=== PATIENT | male | born 1965 | race Caucasian/White ===

== ENCOUNTER 2020-10-06 06:04 | Outpatient (REF) | payer OTHER, SELFPAY ==
[2020-10-06 11:24] LABS: MANUAL DIFF FLAG NO
[2020-10-06 11:44] LABS: Basophils Absolute Auto 0.1 X10*3/uL (0.0-0.2); Basophils Percent Auto 1.1 % (0-2); Eosinophils Absolute Auto 0.3 X10*3/uL (0.0-0.4); Eosinophils Percent Auto 4.1 % (0-4); Hematocrit 46.3 % (42-52); Hemoglobin 15.4 g/dl (14.0-18.0); Imm Gran Abs Auto 0.05 X10*3/uL (0.00-0.03); Imm Gran Pct Auto 0.8 % (0.0-0.4); Lymphocytes Absolute Auto 1.9 X10*3/uL (1.2-4.9); Mean Corpuscular HGB Conc 33.3 g/dl (31.0-36.0); Mean Corpuscular Hemoglobin 28.6 pg (27.0-33.0); Mean Corpuscular Volume 85.9 fL (80-98); Mean Platelet Volume 11.5 fL (9.4-12.4); Monocytes Absolute Auto 0.7 X10*3/uL (0.1-1.2); Monocytes Percent Auto 10.2 % (2-11); Neutrophils Absolute Auto 3.7 X10*3/uL (2.0-8.3); Neutrophils Percent Auto 55.8 % (45-73); Platelet Count 206 X10*3/uL (160-400); Red Blood Count 5.39 X10*6/uL (4.60-5.80); Red Cell Distribution Width 13.1 % (11.0-16.0); White Blood Count 6.6 X10*3/uL (4.8-10.8)
[2020-10-06 12:15] LABS: Alanine Aminotransferase 62 U/L (0-40); Albumin Level 4.4 g/dL (3.5-5.0); Alkaline Phosphatase 72 U/L (39-117); Anion Gap 16 (12-20); Aspartate Amino Transferase 33 U/L (5-37); Bilirubin Total 0.4 mg/dL (0.0-1.0); Blood Urea Nitrogen 19 mg/dL (9-16); Calcium 9.4 mg/dL (8.4-10.2); Carbon Dioxide 28 mmol/L (22-29); Chloride 97 mmol/L (96-108); Cholesterol 150 mg/dL; Estimated Glomerular Filt Rate > 60; Glucose Fasting 261 mg/dL (60-99); HDL Cholesterol 29 mg/dL; Potassium 4.4 mmol/l (3.3-5.1); Sodium 137 mmol/L (135-145); Total Protein 6.9 g/dL (6.5-8.0); Triglycerides 433 mg/dL
[2020-10-06 12:18] LABS: Estimated Average Glucose 240 mg/dL
[2020-10-06 12:21] LABS: Reflex LDLD? No
[2020-10-06 12:41] LABS: Creatinine Urine 101.64 mg/dL; Microalbum/Creatinine Ratio Ur 10.8 ug/mg cr
[2020-10-06 12:44] LABS: Glucose Urine UA >=1000 MG/DL (NEG); Leukocyte Esterase Urine NEG (NEG); Nitrite Urine NEG (NEG); PH 5.5 (5.0-8.0); Specific Gravity - Urine 1.025 (1.005-1.025); Urine Blood NEG (NEG); Urine Ketones NEG (NEG); Urine Protein NEG (NEG-TRACE)
[2020-10-06 12:45] LABS: Appearance Urine CLEAR; Color Urine YELLOW
[2020-10-06 13:14] LABS: RBC Urine 0-2 /HPF (0); Squamous Epithelial Cell Urine TRACE /LPF; WBC Urine 0-2 /HPF (0-4)
== END 2020-10-06 06:05 | disposition home or self-care (01) ==
LOC: HO.HMGCLDS 06:04
PROVIDERS: PCP Internal Medicine; Visit Provider Internal Medicine
DX: E11.40 Type 2 diabetes mellitus with diabetic neuropathy, unspecified (principal); E78.6 Lipoprotein deficiency; E78.2 Mixed hyperlipidemia; Z12.5 Encounter for screening for malignant neoplasm of prostate
CPT/HCPCS: 36415; 80053; 80061; 81001; 81003; 82043; 83036; 84153; 85025

== ENCOUNTER → 2021-01-21 08:57 | Outpatient (BNVA) | payer OTHER, SELFPAY | PROVIDERS: PCP Internal Medicine; Visit Provider Nurse Practitioner Gerontology | DX: E11.65 Type 2 diabetes mellitus with hyperglycemia (principal); E78.2 Mixed hyperlipidemia; E78.1 Pure hyperglyceridemia; I10 Essential (primary) hypertension | CPT/HCPCS: 82947 ==

== ENCOUNTER 2021-04-06 10:21 | Outpatient (REF) | payer OTHER, SELFPAY ==
[2021-04-06 11:21] LABS: Estimated Average Glucose 223 mg/dL; Hemoglobin A1c % 9.4 %
[2021-04-06 11:34] LABS: Alanine Aminotransferase 61 U/L (0-40); Albumin Level 4.6 g/dL (3.5-5.0); Alkaline Phosphatase 66 U/L (39-117); Aspartate Amino Transferase 36 U/L (5-37); Bilirubin Direct 0.2 mg/dL (0.0-0.5); Bilirubin Total 0.6 mg/dL (0.0-1.0); Cholesterol 148 mg/dL; Glucose Fasting 176 mg/dL (60-99); HDL Cholesterol 35 mg/dL; LDL Cholesterol Calculated 34 mg/dl; Total Protein 7.3 g/dL (6.5-8.0); Triglycerides 398 mg/dL
[2021-04-06 11:55] LABS: Reflex LDLD? No
== END 2021-04-06 10:22 | disposition home or self-care (01) ==
LOC: HO.LNP 10:21
PROVIDERS: Visit Provider Internal Medicine
DX: E11.9 Type 2 diabetes mellitus without complications (principal); E78.00 Pure hypercholesterolemia, unspecified
CPT/HCPCS: 80061; 80076; 82947; 83036

== ENCOUNTER → 2021-06-29 08:24 | Outpatient (BNVA) | payer OTHER, SELFPAY | PROVIDERS: PCP Internal Medicine; Visit Provider Nurse Practitioner Gerontology | DX: E11.65 Type 2 diabetes mellitus with hyperglycemia (principal); E11.42 Type 2 diabetes mellitus with diabetic polyneuropathy; E78.2 Mixed hyperlipidemia; E78.1 Pure hyperglyceridemia; I10 Essential (primary) hypertension; Z79.84 Long term (current) use of oral hypoglycemic drugs | CPT/HCPCS: 82947; 83036 ==

== ENCOUNTER → 2021-10-19 07:24 | Outpatient (BNVA) | payer OTHER, SELFPAY | PROVIDERS: PCP Internal Medicine; Visit Provider Nurse Practitioner Gerontology ==

== ENCOUNTER 2021-11-18 10:06 | Outpatient (REF) | payer OTHER, SELFPAY ==
[2021-11-18 10:09] LABS: MANUAL DIFF FLAG NO
[2021-11-18 10:26] LABS: Basophils Absolute Auto 0.1 X10*3/uL (0.0-0.2); Basophils Percent Auto 0.8 % (0-2); Eosinophils Absolute Auto 0.3 X10*3/uL (0.0-0.4); Eosinophils Percent Auto 3.6 % (0-4); Hemoglobin 16.5 g/dl (14.0-18.0); Imm Gran Abs Auto 0.03 X10*3/uL (0.00-0.03); Imm Gran Pct Auto 0.4 % (0.0-0.4); Lymphocytes Absolute Auto 2.1 X10*3/uL (1.2-4.9); Lymphocytes Percent Auto 25.2 % (20-40); Mean Corpuscular Hemoglobin 28.4 pg (27.0-33.0); Mean Corpuscular Volume 86.1 fL (80.0-98.0); Mean Platelet Volume 11.2 fL (9.4-12.4); Monocytes Absolute Auto 0.7 X10*3/uL (0.1-1.2); Monocytes Percent Auto 8.6 % (2-11); Neutrophils Absolute Auto 5.2 x10*3/uL (2.0-8.3); Neutrophils Percent Auto 61.4 % (45-73); Platelet Count 234 X10*3/uL (160-400); Red Blood Count 5.81 X10*6/uL (4.60-5.80); Red Cell Distribution Width 13.2 % (11.0-16.0); White Blood Count 8.4 X10*3/uL (4.8-10.8)
[2021-11-18 10:27] LABS: Appearance Urine CLEAR; Color Urine STRAW; Glucose Urine UA 500 MG/DL (NEG); Leukocyte Esterase Urine NEG (NEG); Nitrite Urine NEG (NEG); PH 5.5 (5.0-8.0); Urine Blood NEG (NEG); Urine Ketones NEG (NEG); Urine Protein NEG (NEG-TRACE)
[2021-11-18 10:38] LABS: Estimated Average Glucose 203 mg/dL; Hemoglobin A1c % 8.7 %
[2021-11-18 10:40] LABS: Alanine Aminotransferase 27 U/L (0-40); Albumin Level 4.7 g/dL (3.5-5.0); Alkaline Phosphatase 73 U/L (39-117); Anion Gap 14 (12-20); Aspartate Amino Transferase 22 U/L (5-37); Bilirubin Total 0.5 mg/dL (0.0-1.0); Blood Urea Nitrogen 17 mg/dL (9-16); Calcium 9.8 mg/dL (8.4-10.2); Carbon Dioxide 27 mmol/L (22-29); Chloride 101 mmol/L (96-108); Cholesterol 138 mg/dL; Estimated Glomerular Filt Rate > 60; Glucose Fasting 146 mg/dL (60-99); HDL Cholesterol 35 mg/dL; LDL Cholesterol Calculated 61 mg/dl; Potassium 4.4 mmol/L (3.3-5.1); Sodium 138 mmol/L (135-145); Total Protein 7.3 g/dL (6.5-8.0); Triglycerides 211 mg/dL
[2021-11-18 11:00] LABS: Creatinine Urine 44.54 mg/dL; Microalbum/Creatinine Ratio Ur 22.4 ug/mg cr
[2021-11-18 11:30] LABS: PSA,Total (Free>4and<10) 2.48 ng/mL (0.00-4.00)
== END 2021-11-18 10:07 | disposition home or self-care (01) ==
LOC: HO.LNP 10:06
PROVIDERS: Visit Provider Internal Medicine
DX: Z00.00 Encounter for general adult medical examination without abnormal findings (principal); Z12.5 Encounter for screening for malignant neoplasm of prostate; I10 Essential (primary) hypertension; E78.6 Lipoprotein deficiency; E78.00 Pure hypercholesterolemia, unspecified; E11.40 Type 2 diabetes mellitus with diabetic neuropathy, unspecified
CPT/HCPCS: 80053; 80061; 81003; 82043; 83036; 84153; 85025

== ENCOUNTER → 2022-01-17 07:52 | Outpatient (BNVA) | payer OTHER, SELFPAY | PROVIDERS: PCP Internal Medicine; Visit Provider Nurse Practitioner Gerontology | DX: E11.65 Type 2 diabetes mellitus with hyperglycemia (principal); E11.42 Type 2 diabetes mellitus with diabetic polyneuropathy; E78.2 Mixed hyperlipidemia; E78.1 Pure hyperglyceridemia; I10 Essential (primary) hypertension; Z79.84 Long term (current) use of oral hypoglycemic drugs; Z79.82 Long term (current) use of aspirin; Z79.899 Other long term (current) drug therapy | CPT/HCPCS: 82947 ==

== ENCOUNTER 2022-06-07 06:21 | Outpatient (REF) | payer OTHER, SELFPAY ==
[2022-06-07 12:14] LABS: Estimated Average Glucose 174 mg/dL; Hemoglobin A1c % 7.7 %
[2022-06-07 12:19] LABS: Alanine Aminotransferase 24 U/L (0-40); Albumin Level 4.5 g/dL (3.5-5.0); Alkaline Phosphatase 62 U/L (39-117); Aspartate Amino Transferase 19 U/L (5-37); Bilirubin Direct < 0.2 mg/dL (0.0-0.5); Bilirubin Total 0.4 mg/dL (0.0-1.0); Cholesterol 132 mg/dL; Glucose Fasting 147 mg/dL (60-99); HDL Cholesterol 30 mg/dL; LDL Cholesterol Calculated 41 mg/dl; Total Protein 6.9 g/dL (6.5-8.0); Triglycerides 306 mg/dL
== END 2022-06-07 06:22 | disposition home or self-care (01) ==
LOC: HO.HMGCLDS 06:21
PROVIDERS: PCP Internal Medicine; Visit Provider Internal Medicine
DX: E78.00 Pure hypercholesterolemia, unspecified (principal); E11.40 Type 2 diabetes mellitus with diabetic neuropathy, unspecified
CPT/HCPCS: 36415; 80061; 80076; 82947; 83036

== ENCOUNTER 2022-08-09 16:07 | Outpatient (REF) | payer OTHER, SELFPAY ==
[2022-08-09 16:24] LABS: Appearance Urine Clear; Color Urine Yellow; Glucose Urine UA 250 mg/dL (Negative); Leukocyte Esterase Urine Moderate (2+) (Negative); Nitrite Urine Negative (Negative); Specific Gravity - Urine 1.015 (1.005-1.025); UMIC TRIGGER UA YES; Urine Blood Moderate (2+) (Negative); Urine Ketones Negative (Negative); Urine Protein 30 (1+) mg/dL (Neg-Trace)
[2022-08-09 16:29] LABS: Bacteria Urine None Seen (None Seen); WBC Urine 21-50 /HPF (0-5)
== END 2022-08-09 16:08 | disposition home or self-care (01) ==
LOC: HO.LNP 16:07
PROVIDERS: Visit Provider Internal Medicine
DX: N30.90 Cystitis, unspecified without hematuria (principal)
CPT/HCPCS: 81001; 87086

== ENCOUNTER 2022-08-19 11:45 | Outpatient (REF) | payer OTHER, SELFPAY ==
[2022-08-19 12:34] LABS: Appearance Urine Clear; Color Urine Dark Yellow; Glucose Urine UA >=1000 mg/dL (Negative); Leukocyte Esterase Urine Small (1+) (Negative); Nitrite Urine Positive (Negative); PH 5.5 (5.0-9.0); UMIC TRIGGER UA YES; Urine Blood Trace (Negative); Urine Ketones Negative (Negative); Urine Protein Trace mg/dL (Neg-Trace)
[2022-08-19 12:53] LABS: Bacteria Urine None Seen (None Seen); Hyaline Casts Urine 0-2 /LPF (0-2)
== END 2022-08-19 11:46 | disposition home or self-care (01) ==
LOC: HO.LNP 11:45
PROVIDERS: Visit Provider Internal Medicine
DX: R82.90 Unspecified abnormal findings in urine (principal)
CPT/HCPCS: 81001; 87086

== ENCOUNTER 2022-08-23 11:36 | Outpatient (REF) | payer OTHER, SELFPAY ==
[2022-08-23 12:38] LABS: Blood Urea Nitrogen 19 mg/dL (9-16); Estimated Glomerular Filt Rate 57
== END 2022-08-23 11:37 | disposition home or self-care (01) ==
LOC: HO.LNP 11:36
PROVIDERS: Visit Provider Internal Medicine
DX: Z01.812 Encounter for preprocedural laboratory examination (principal)
CPT/HCPCS: 82565; 84520

== ENCOUNTER 2022-08-24 12:20 | Outpatient (REF) | payer OTHER, SELFPAY ==
--- NOTE | ~2022-08-24 | CT_ITS ---
EXAMINATION: CT ABDOMEN AND PELVIS WITH CONTRAST CLINICAL INFORMATION: Dysuria COMPARISON: None TECHNIQUE: Multidetector volumetric images were obtained from the superior aspect of the liver through the pubic symphysis following administration 85 mL of Omnipaque 350 intravenous contrast. Sagittal and coronal reformatted images were obtained on the technologist's workstation. Oral contrast: No This CT examination was performed using dose optimization techniques as appropriate, variously including the following: *Automated exposure control *Adjustment of mA and/or kV according to patient size (this includes techniques or standardized protocols for targeted exams where dose is matched to indication/reason for exam; i.e. extremities or head) *Use of iterative reconstruction technique DLP: 414 mGy-cm FINDINGS: LUNG BASES: There are peripheral subpleural punctate hypodensities likely micronodules. For example a 2 mm nodule right lower lobe axial image 48/6, 3 mm nodule right middle lobe axial image 40/6 and 2 mm nodule subpleural based left lower lobe axial image 9/6. There is mild bronchial wall thickening but no bronchiectasis. LIVER, GALLBLADDER, AND BILIARY TREE: The liver is normal in size, shape, and attenuation. No focal hepatic lesion or biliary ductal dilatation is present. The gallbladder is unremarkable with no evidence of radiopaque gallstones, gallbladder wall thickening, or obvious pericholecystic inflammatory changes. PANCREAS: Unremarkable. SPLEEN: Unremarkable. ADRENAL GLANDS: Unremarkable. KIDNEYS AND URETERS: The kidneys are normal in size, shape, and attenuation. No hydronephrosis, hydroureter, or calculi seen. No perinephric stranding. There is no enhancing lesion or cyst. The ureters are of normal caliber. BLADDER: The bladder is nondistended. There is mild bladder wall thickening especially the posterior and superior velázquez. GASTROINTESTINAL TRACT: There is scattered moderate stool, diverticuli and gas seen throughout the colon without distention without diverticulitis. The small bowel loops are normal caliber. Appendix is normal caliber. ABDOMINAL WALL: No significant hernia is appreciated. LYMPH NODES: Normal. VASCULAR: There is atherosclerotic calcification of abdominal aorta without aneurysmal dilatation. PELVIC VISCERA: There is mild prostate enlargement with heterogeneous appearing central gland. No free fluid. No abnormal pelvic or inguinal lymph nodes. OSSEOUS STRUCTURES: There are degenerative disc changes with vacuum disc phenomena L5-S1 disc level. Mild ventral spondylosis throughout lumbar spine. CT/CT abdomen pelvis w IV con IMPRESSION: 1. No radiopaque urolith or hydroureteronephrosis. 2. Undistended bladder with mild bladder wall thickening. Mild prostate enlargement. 3. Colonic diverticulosis without diverticulitis. Fleischner guidelines were followed.
[2022-08-24] MEDS: iohexoL 350 MG/ML 100 ML INFUS..BTL IV (14:03)
== END 2022-08-24 12:21 | disposition home or self-care (01) ==
LOC: HO.CT 12:20
PROVIDERS: PCP Internal Medicine; Visit Provider Internal Medicine
DX: R30.0 Dysuria (principal)
CPT/HCPCS: 74177; Q9967

== ENCOUNTER 2022-09-06 10:44 | Outpatient (REF) | payer OTHER, SELFPAY ==
[2022-09-06 10:54] LABS: Appearance Urine Clear; Color Urine Dark Yellow; Glucose Urine UA >=1000 mg/dL (Negative); Leukocyte Esterase Urine Negative (Negative); Nitrite Urine Positive (Negative); UMIC TRIGGER UA YES; Urine Blood Negative (Negative); Urine Ketones Trace mg/dL (Negative); Urine Protein Negative (Neg-Trace)
[2022-09-06 11:06] LABS: Bacteria Urine Trace (None Seen); Hyaline Casts Urine 0-2 /LPF (0-2); RBC Urine 0-2 /HPF (0-2); Squamous Epithelial Cell Urine 0-2 /HPF (0-2)
== END 2022-09-06 10:45 | disposition home or self-care (01) ==
LOC: HO.LNP 10:44
PROVIDERS: Visit Provider Internal Medicine
DX: N40.0 Benign prostatic hyperplasia without lower urinary tract symptoms (principal); R30.0 Dysuria
CPT/HCPCS: 81001; 87086

== ENCOUNTER 2022-09-30 10:56 | Outpatient (REF) | payer OTHER, SELFPAY ==
[2022-09-30 11:36] LABS: Blood Urea Nitrogen 15 mg/dL (9-16); Estimated Glomerular Filt Rate > 60
== END 2022-09-30 10:57 | disposition home or self-care (01) ==
LOC: HO.LNP 10:56
PROVIDERS: Visit Provider Internal Medicine
DX: Z01.812 Encounter for preprocedural laboratory examination (principal)
CPT/HCPCS: 82565; 84520

== ENCOUNTER 2022-10-12 10:17 | Outpatient (REF) | payer OTHER, SELFPAY ==
--- NOTE | ~2022-10-12 | CT_ITS ---
EXAMINATION: CT CHEST WITH CONTRAST CLINICAL INFORMATION: Solitary pulmonary nodule COMPARISON: Chest CT from 07/17/2008. Abdominal CT 08/24/2022. TECHNIQUE: Multidetector volumetric CT imaging of the chest was obtained after the administration of 65 mL of Omnipaque 350 intravenous contrast without immediate adverse reactions. Axial MIP volume rendering provided. Sagittal and coronal reformatted images were obtained. This CT examination was performed using dose optimization techniques as appropriate, variously including the following: *Automated exposure control *Adjustment of mA and/or kV according to patient size (this includes techniques or standardized protocols for targeted exams where dose is matched to indication/reason for exam; i.e. extremities or head) *Use of iterative reconstruction technique DLP: 162 mGy-cm FINDINGS: APPAREL RENTAL CLERK: Unremarkable. LUNGS: The central airways are patent. No consolidation. No pneumothorax. Pulmonary nodules are again noted. 1. 0.2 cm right lower lobe nodule on series 7 image 108. This is unchanged from the prior abdominal CT, and unchanged compared to the study from 2007. 2. 0.3 cm right middle lobe nodule on series 7 image 109. This is unchanged from 2008. 3. 0.3 cm subpleural left lower lobe nodule on series 7 image 96. This is unchanged from 2008. 4. Left upper lobe 0.3 cm nodule on series 7 image 82 is unchanged from 2008. There are no new pulmonary nodules. MEDIASTINUM: Normal heart size. No pericardial effusion. No mediastinal lymphadenopathy. Moderate coronary artery calcifications. PLEURA: There is no pleural effusion. No pleural mass or thickening. AXILLA: No lymphadenopathy. UPPER ABDOMEN: No acute abnormality. Low-attenuation diffusely of the liver consistent with hepatic steatosis. OSSEOUS STRUCTURES: No acute or suspicious osseous abnormality. CT/CT chest w IV con IMPRESSION: 1. Multiple small pulmonary nodules are seen throughout both lungs, all of which are unchanged from 2008 and are therefore benign. No new pulmonary nodules are seen. 2. Hepatic steatosis. Fleischner guidelines were followed.
[2022-10-12] MEDS: iohexoL 350 MG/ML 100 ML INFUS..BTL IV (10:57)
== END 2022-10-12 10:18 | disposition home or self-care (01) ==
LOC: HO.CT 10:17
PROVIDERS: PCP Internal Medicine; Visit Provider Internal Medicine
DX: R91.1 Solitary pulmonary nodule (principal)
CPT/HCPCS: 71260; Q9967

== ENCOUNTER 2022-11-25 11:03 | Outpatient (REF) | payer OTHER, SELFPAY ==
[2022-11-25 11:09] LABS: MANUAL DIFF FLAG NO
[2022-11-25 11:50] LABS: Basophils Absolute Auto 0.1 X10*3/uL (0.0-0.2); Basophils Percent Auto 0.9 % (0-2); Eosinophils Absolute Auto 0.2 X10*3/uL (0.0-0.4); Eosinophils Percent Auto 2.6 % (0-4); Hematocrit 46.3 % (42.0-52.0); Imm Gran Abs Auto 0.07 X10*3/uL (0.00-0.03); Imm Gran Pct Auto 0.9 % (0.0-0.4); Lymphocytes Absolute Auto 2.4 X10*3/uL (1.2-4.9); Lymphocytes Percent Auto 31.1 % (20-40); Mean Corpuscular HGB Conc 32.4 g/dl (31.0-36.0); Mean Corpuscular Volume 86.4 fL (80.0-98.0); Mean Platelet Volume 11.3 fL (9.4-12.4); Monocytes Absolute Auto 0.7 X10*3/uL (0.1-1.2); Monocytes Percent Auto 9.7 % (2-11); Neutrophils Absolute Auto 4.2 x10*3/uL (2.0-8.3); Neutrophils Percent Auto 54.8 % (45-73); Platelet Count 254 X10*3/uL (160-400); Red Blood Count 5.36 X10*6/uL (4.60-5.80); White Blood Count 7.6 X10*3/uL (4.8-10.8)
[2022-11-25 11:52] LABS: Appearance Urine Cloudy; Color Urine Dark Yellow; Glucose Urine UA 500 mg/dL (Negative); Leukocyte Esterase Urine Trace (Negative); Nitrite Urine Positive (Negative); PH 5.5 (5.0-9.0); UMIC TRIGGER UACC YES; Urine Blood Trace (Negative); Urine Ketones Negative (Negative); Urine Protein Negative (Neg-Trace)
[2022-11-25 12:07] LABS: Bacteria Urine None Seen (None Seen); Hyaline Casts Urine 0-2 /LPF (0-2); RBC Urine 0-2 /HPF (0-2); Squamous Epithelial Cell Urine 0-2 /HPF (0-2); UACC Culture Trigger YES
[2022-11-25 12:46] LABS: Estimated Average Glucose 235 mg/dL; Hemoglobin A1c % 9.8 %
[2022-11-25 12:50] LABS: Creatinine Urine 24.28 mg/dL; Microalbum/Creatinine Ratio Ur 65.8 ug/mg cr
[2022-11-25 13:01] LABS: Alanine Aminotransferase 48 U/L (0-40); Albumin Level 4.5 g/dL (3.5-5.0); Alkaline Phosphatase 76 U/L (39-117); Anion Gap 15 (12-20); Aspartate Amino Transferase 31 U/L (5-37); Bilirubin Total 0.5 mg/dL (0.0-1.0); Blood Urea Nitrogen 19 mg/dL (9-16); Calcium 9.4 mg/dL (8.4-10.2); Carbon Dioxide 28 mmol/L (22-29); Chloride 100 mmol/L (96-108); Cholesterol 127 mg/dL; Estimated Glomerular Filt Rate 59; Glucose Fasting 210 mg/dL (60-99); HDL Cholesterol 33 mg/dL; LDL Cholesterol Calculated 50 mg/dl; PSA,Total (Free>4and<10) 2.68 ng/mL (0.00-4.00); Potassium 4.4 mmol/L (3.3-5.1); Sodium 139 mmol/L (135-145); Triglycerides 221 mg/dL
== END 2022-11-25 11:04 | disposition home or self-care (01) ==
LOC: HO.LNP 11:03
PROVIDERS: Visit Provider Internal Medicine
DX: Z00.00 Encounter for general adult medical examination without abnormal findings (principal); Z12.5 Encounter for screening for malignant neoplasm of prostate; I10 Essential (primary) hypertension; E78.00 Pure hypercholesterolemia, unspecified; E11.40 Type 2 diabetes mellitus with diabetic neuropathy, unspecified; N40.0 Benign prostatic hyperplasia without lower urinary tract symptoms
CPT/HCPCS: 80053; 80061; 81001; 82043; 83036; 84153; 85025; 87086

== ENCOUNTER 2023-11-30 11:22 | Outpatient (REF) | payer OTHER, SELFPAY ==
[2023-11-30 11:26] LABS: MANUAL DIFF FLAG NO
[2023-11-30 11:49] LABS: Basophils Absolute Auto 0.1 X10*3/uL (0.0-0.2); Basophils Percent Auto 1.1 % (0-2); Eosinophils Absolute Auto 0.2 X10*3/uL (0.0-0.4); Eosinophils Percent Auto 2.6 % (0-4); Hematocrit 43.4 % (42.0-52.0); Hemoglobin 14.7 g/dl (14.0-18.0); Imm Gran Abs Auto 0.04 X10*3/uL (0.00-0.03); Imm Gran Pct Auto 0.6 % (0.0-0.4); Lymphocytes Absolute Auto 1.8 X10*3/uL (1.2-4.9); Lymphocytes Percent Auto 24.7 % (20-40); Mean Corpuscular HGB Conc 33.9 g/dl (31.0-36.0); Mean Corpuscular Hemoglobin 28.4 pg (27.0-33.0); Mean Corpuscular Volume 83.9 fL (80.0-98.0); Mean Platelet Volume 11.1 fL (9.4-12.4); Monocytes Absolute Auto 0.7 X10*3/uL (0.1-1.2); Monocytes Percent Auto 10.1 % (2-11); Neutrophils Absolute Auto 4.4 x10*3/uL (2.0-8.3); Neutrophils Percent Auto 60.9 % (45-73); Platelet Count 221 X10*3/uL (160-400); Red Blood Count 5.17 X10*6/uL (4.60-5.80); Red Cell Distribution Width 13.2 % (11.0-16.0); White Blood Count 7.2 X10*3/uL (4.8-10.8)
[2023-11-30 11:50] LABS: Appearance Urine Clear; Color Urine Yellow; Glucose Urine UA 250 mg/dL (Negative); Leukocyte Esterase Urine Trace (Negative); Nitrite Urine Negative (Negative); UMIC TRIGGER UACC YES; Urine Blood Negative (Negative); Urine Ketones Negative (Negative); Urine Protein Negative (Neg-Trace)
[2023-11-30 11:54] LABS: Bacteria Urine None Seen (None Seen); Hyaline Casts Urine 0-2 /LPF (0-2); RBC Urine 0-2 /HPF (0-2); Squamous Epithelial Cell Urine 0-2 /HPF (0-2); UACC Culture Trigger YES
[2023-11-30 12:23] LABS: Alanine Aminotransferase 77 U/L (0-40); Albumin Level 4.4 g/dL (3.5-5.0); Alkaline Phosphatase 65 U/L (39-117); Anion Gap 17 (12-20); Aspartate Amino Transferase 51 U/L (5-37); Bilirubin Total 0.4 mg/dL (0.0-1.0); Blood Urea Nitrogen 16 mg/dL (9-16); Calcium 9.5 mg/dL (8.4-10.2); Carbon Dioxide 25 mmol/L (22-29); Chloride 100 mmol/L (96-108); Cholesterol 127 mg/dL (<200); Estimated Glomerular Filt Rate > 60; Glucose Fasting 176 mg/dL (60-99); HDL Cholesterol 32 mg/dL (>40); LDL Cholesterol Calculated 49 mg/dL (<100); Potassium 4.2 mmol/L (3.3-5.1); Sodium 138 mmol/L (135-145); Total Protein 7.1 g/dL (6.5-8.0); Triglycerides 230 mg/dL (<150)
[2023-11-30 12:25] LABS: PSA,Total (Free>4and<10) 2.51 ng/mL (0.00-4.00)
[2023-11-30 12:31] LABS: Creatinine Urine 145.61 mg/dL; Microalbum/Creatinine Ratio Ur 23.3 ug/mg cr (<30)
[2023-11-30 12:32] LABS: Estimated Average Glucose 189 mg/dL; Hemoglobin A1c % 8.2 % (<6.0)
== END 2023-11-30 11:23 | disposition home or self-care (01) ==
LOC: HO.LNP 11:22
PROVIDERS: Visit Provider Internal Medicine
DX: Z00.00 Encounter for general adult medical examination without abnormal findings (principal); Z12.5 Encounter for screening for malignant neoplasm of prostate; I10 Essential (primary) hypertension; E11.40 Type 2 diabetes mellitus with diabetic neuropathy, unspecified; E78.00 Pure hypercholesterolemia, unspecified; N40.0 Benign prostatic hyperplasia without lower urinary tract symptoms
CPT/HCPCS: 80053; 80061; 81001; 82043; 82570; 83036; 84153; 85025; 87086

== ENCOUNTER 2024-01-12 07:13 | Outpatient (REF) | payer OTHER, SELFPAY ==
--- NOTE | ~2024-01-12 | CT_ITS ---
EXAMINATION: CT CHEST WITHOUT CONTRAST CLINICAL INFORMATION: Pulmonary nodule. COMPARISON: 10/12/2022 and 07/17/2008 TECHNIQUE: Multidetector volumetric CT imaging of the chest was done. Axial MIP volume rendering provided. Sagittal and coronal reformatted images were obtained. This CT examination was performed using dose optimization techniques as appropriate, variously including the following: *Automated exposure control *Adjustment of mA and/or kV according to patient size (this includes techniques or standardized protocols for targeted exams where dose is matched to indication/reason for exam; i.e. extremities or head) *Use of iterative reconstruction technique DLP: 201 mGy-cm FINDINGS: LUNGS: 3 mm nodule right upper lobe on image 148. 4 mm nodule right lower lobe on image 214. 4 mm nodule left upper lobe on image 255. 4 mm nodule right middle lobe on image 273. No new or suspicious pulmonary nodules. No focal consolidation. Central airways are patent. MEDIASTINUM: No bulky mediastinal or hilar lymphadenopathy. Great vessels are of normal caliber. Heart size is normal. No pericardial effusion. CORONARY ARTERY CALCIFICATION: Moderate. PLEURA: No pleural effusion. AXILLA: No lymphadenopathy. UPPER ABDOMEN: Hepatic steatosis. OSSEOUS STRUCTURES: No destructive bone lesions. CT/CT chest wo IV con IMPRESSION: Scattered bilateral pulmonary nodules measuring up to 4 mm. These nodules appear stable relative to 07/17/2008. Hepatic steatosis.
== END 2024-01-12 07:14 | disposition home or self-care (01) ==
LOC: HO.CT 07:13
PROVIDERS: PCP Internal Medicine; Visit Provider Internal Medicine
DX: R91.1 Solitary pulmonary nodule (principal)
CPT/HCPCS: 71250

== ENCOUNTER 2024-03-11 11:09 | Outpatient (REF) | payer OTHER, SELFPAY ==
[2024-03-11 11:47] LABS: Alanine Aminotransferase 58 U/L (0-40); Albumin Level 4.4 g/dL (3.5-5.0); Alkaline Phosphatase 69 U/L (39-117); Aspartate Amino Transferase 32 U/L (5-37); Bilirubin Direct 0.1 mg/dL (0.0-0.5); Bilirubin Total 0.4 mg/dL (0.0-1.0); Total Protein 7.1 g/dL (6.5-8.0)
== END 2024-03-11 11:10 | disposition home or self-care (01) ==
LOC: HO.LNP 11:09
PROVIDERS: Visit Provider Internal Medicine
DX: J44.9 Chronic obstructive pulmonary disease, unspecified (principal)
CPT/HCPCS: 80076

== ENCOUNTER 2024-12-05 10:29 | Outpatient (REF) | payer OTHER, SELFPAY ==
[2024-12-05 10:33] LABS: MANUAL DIFF FLAG NO
[2024-12-05 11:37] LABS: Basophils Absolute Auto 0.1 X10*3/uL (0.0-0.2); Basophils Percent Auto 0.8 % (0-2); Eosinophils Absolute Auto 0.2 X10*3/uL (0.0-0.4); Eosinophils Percent Auto 2.6 % (0-4); Hematocrit 45.9 % (42.0-52.0); Hemoglobin 15.6 g/dl (14.0-18.0); Imm Gran Abs Auto 0.06 X10*3/uL (0.00-0.03); Imm Gran Pct Auto 0.7 % (0.0-0.4); Lymphocytes Percent Auto 23.1 % (20-40); Mean Corpuscular Hemoglobin 28.3 pg (27.0-33.0); Mean Corpuscular Volume 83.2 fL (80.0-98.0); Mean Platelet Volume 11.2 fL (9.4-12.4); Monocytes Absolute Auto 0.8 X10*3/uL (0.1-1.2); Monocytes Percent Auto 9.6 % (2-11); Neutrophils Absolute Auto 5.5 x10*3/uL (2.0-8.3); Neutrophils Percent Auto 63.2 % (45-73); Platelet Count 233 X10*3/uL (160-400); Red Blood Count 5.52 X10*6/uL (4.60-5.80); Red Cell Distribution Width 13.2 % (11.0-16.0); White Blood Count 8.7 X10*3/uL (4.8-10.8)
[2024-12-05 11:50] LABS: Alanine Aminotransferase 76 U/L (0-40); Albumin Level 4.5 g/dL (3.5-5.0); Alkaline Phosphatase 64 U/L (39-117); Anion Gap 14 (12-20); Aspartate Amino Transferase 50 U/L (5-37); Bilirubin Total 0.4 mg/dL (0.0-1.0); Blood Urea Nitrogen 21 mg/dL (9-16); Calcium 9.5 mg/dL (8.4-10.2); Carbon Dioxide 27 mmol/L (22-29); Chloride 100 mmol/L (96-108); Cholesterol 130 mg/dL (<200); Estimated Glomerular Filt Rate > 60; Glucose Random 133 mg/dL (60-115); HDL Cholesterol 32 mg/dL (>40); LDL Cholesterol Calculated 57 mg/dL (<100); Potassium 4.1 mmol/L (3.3-5.1); Sodium 137 mmol/L (135-145); Total Protein 7.6 g/dL (6.5-8.0); Triglycerides 208 mg/dL (<150)
[2024-12-05 11:51] LABS: Estimated Average Glucose 183 mg/dL
[2024-12-05 12:07] LABS: PSA,Total (Free>4and<10) 1.15 ng/mL (0.00-4.00)
[2024-12-05 12:14] LABS: Creatinine Urine 120.73 mg/dL; Microalbum/Creatinine Ratio Ur 19.8 ug/mg cr (<30)
== END 2024-12-05 10:30 | disposition home or self-care (01) ==
LOC: HO.LNP 10:29
PROVIDERS: Visit Provider Internal Medicine
DX: Z00.00 Encounter for general adult medical examination without abnormal findings (principal); I10 Essential (primary) hypertension; E78.00 Pure hypercholesterolemia, unspecified; Z13.1 Encounter for screening for diabetes mellitus; Z12.5 Encounter for screening for malignant neoplasm of prostate
CPT/HCPCS: 80053; 80061; 82043; 82570; 83036; 84153; 85025

== ENCOUNTER 2025-06-06 07:45 | Outpatient (REF) | payer OTHER, SELFPAY ==
[2025-06-06 11:52] LABS: Hemoglobin A1C 240.7328 umol/L; Total Hemoglobin (HGBA1C) 3799.5941 umol/L
--- OUTSIDE RECORDS SUMMARY | 2025-06-06 12:00 | XMS_ITS | Encounter Summary ---
Author Organization [facility] Address [address] [place] [address] Phone Care Team Providers Care Fibrous Plasterer Name Role Phone Mele Christian MD Primary Care Provider Mele Christian MD Unavailable [phone] Encounter Details Date Type Department Care Team (Late st Contact Info) Description 06/10/2024 Procedure Pass [facility] Cancer [place], MRI [address] [facility] 4th [place] [address] Social History Tobacco Use Types Packs/Day Years Used Date Smoking Tobacco: Former Cigarettes 1 40 1 975 - 2014 Passive Smoke Exposure: Past Smokeless Tobacco: Former Child or Family Care Answer Date Record ed Do you have problems with on e of the following making it difficult for you to work, study, or receive health care? No 06/12/2023 Education Answer Date Recorded Are you interested in help w ith more adult education (for example, completing high school, GED, job training, learning the Tunisian language, technical skills, or developing parenting skills)? No 06/12/2023 Are you concerned about learning? Not on file 06/12/2023 No 06/12/2023 Yes 06/12/2023 Food Answer Date Recorded Within the past 6 months we worried whether our food would run out before we got money to buy more. Never True 06/12/2023 Within the past 6 months the food we bought just didn't last and we didn't have enough money to get more. Never True Residential Stability Answer Date Recor ded What is your housing situation today? I have omid sing 06/12/2023 How many times have you move d in the past 12 months? Zero (I did not move) 06/12/2023 Paying for Meds Answer Date Recorded Do you have trouble paying for medicines? No 06/12/2023 Paying Utility Bills Answer Date Record ed Do you have trouble paying your heating or elect ricity bill? No 06/12/2023 Transportation Answer Date Recorded Has the lack of transportati on kept you from medical appointments or from getting medications? No 06/12/2023 Digital Access Answer Date Recorded No 06/07/2023 No 06/07/2023 Reliable internet access at home? Not on file 06/07/2023 Device with a working camera? 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 on file Not on everett e documented as of this encounter Plan of Treatment Upcoming Encounters Date Type Department Care Team (Latest Contact Info) Description 06/24/2025 Procedure Pass [facility] Periop [address] [place] [address] 06/24/2025 4:33 PM EDT Hospital Encounter [facility] [address] [address] Efe Diamond MD [address] [place] [address] [email or web address] 06/24/2025 4:33 PM EDT - 06/24/2025 6:24 PM EDT Surgery [facility] Periop [address] [place] [address] Efe Diamond MD [address] [place] [address] [email or web address] BLUE LIGHT CYSTOSCOPY, TRANSURETHRAL RESECTION BLADDER TUMOR Scheduled Procedures Name Priority Associated Diagnoses Date/Ti ct TRANSURETHRAL RESECTION BLADDER TUMOR Research study patient 06/24/2025 4:33 PM EDT documented as of this encounter Visit Diagnoses Not on filedocumented in this encounter Care Teams Fibrous Plasterer Relationship Specialty Start Date End Date Mele Christian MD [address] [place] [address] [place] [address] PCP - General Internal Medicine 05/31/23 Mele Christian MD [address] [place] [address] [place] [address] Referring Physician Internal Medicine 06/12/23 documented as of this encounter Additional Source Comments The information contained in this document represents components of the legal health record. It is not the complete legal health record.[facility]
--- OUTSIDE RECORDS SUMMARY | 2025-06-06 12:00 | XMS_ITS | Encounter Summary ---
Author Organization [facility] Address [address] [place] [address] Phone Care Team Providers Care Psychiatric Assistant Name Role Phone Mele Christian MD Primary Care Provider Mele Christian MD Unavailable [phone] Encounter Details Date Type Department Care Team (Late st Contact Info) Description 06/12/2023 Ancillary Orders Outside Imaging Gerson Dillon MD, PhD [address] [place] [address] [email or web address] Social History Tobacco Use Types Packs/Day Years Used Date Smoking Tobacco: Former Cigarettes 1 40 1 975 - 2015 Child or Family Care Answer Date Record ed Do you have problems with on e of the following making it difficult for you to work, study, or receive health care? No 06/12/2023 Education Answer Date Recorded Are you interested in help w ith more adult education (for example, completing high school, GED, job training, learning the Pakistani language, technical skills, or developing parenting skills)? [...] your housing situation today? 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 on file Not on everett e documented as of this encounter Plan of Treatment Upcoming Encounters Date Type Department Care Team (Latest Contact Info) Description 06/24/2025 Procedure Pass [facility] Periop [address] [place] [address] 06/24/2025 4:33 PM EDT Hospital Encounter [facility] [address] [address] Efe Diamond MD [address] [place] [address] [email or web address] 06/24/2025 4:33 PM EDT - 06/24/2025 6:24 PM EDT Surgery [facility] Periop [address] [place] [address] Efe Diamond MD [address] [place] [address] [email or web address] BLUE LIGHT CYSTOSCOPY, TRANSURETHRAL RESECTION BLADDER TUMOR Scheduled Procedures Name Priority Associated Diagnoses Date/Ti il TRANSURETHRAL RESECTION BLADDER TUMOR Research study patient 06/24/2025 4:33 PM EDT documented as of this encounter Results * MRI Pelvis (Soft Tissue) Outside (No Interpretation) (03/29/2023 12:00 AM EDT) Other Narrative [facility] - 06/12/2023 10:36 AM EDT This study is for PACS storage only and not for interpretation. Gerson Falk MD, PhD IMG OUTS [facility]AG[facility] W/OUT INTERPRETATION Final Result [facility] documented in this encounter Visit Diagnoses Not on filedocumented in this encounter Care Teams Psychiatric Assistant Relationship Specialty Start Date End Date Mele Christian MD [address] [place] [address] [place] [address] PCP - General Internal Medicine 05/31/23 Mele Christian MD [address] [place] [address] [place] [address] Referring Physician Internal Medicine 06/12/23 documented as of this encounter Additional Source Comments The information contained in this document represents components of the legal health record. It is not the complete legal health record.[facility]
--- OUTSIDE RECORDS SUMMARY | 2025-06-06 12:00 | XMS_ITS | Encounter Summary ---
Author Organization [facility] Address [address] [place] [address] Phone Care Team Providers Care Bitumen Plant Operator Name Role Phone Mele Christian MD Primary Care Provider Mele Christian MD Unavailable [phone] Encounter Details Date Type Department Care Team (Late st Contact Info) Description 05/07/2025 Telephone [facility] Urology [address] [facility] [place] [address] Cyn VoCOYANOSA, [place] [address] [place] [address] [email or web address] Social History Tobacco Use Types Packs/Day Years Used Date Smoking Tobacco: Former Cigarettes 1 40 1 975 - 2015 Passive Smoke Exposure: Past Smokeless Tobacco: Former Child or Family Care Answer Date Record ed Do you have problems with on e of the following making it difficult for you to work, study, or receive health care? No 06/12/2023 Education Answer Date Recorded Are you interested in help w ith more adult education (for example, completing high school, GED, job training, learning the [place] language, technical skills, or developing parenting skills)? [...] with a working camera? Not on file Intimate Partner Violence Answer Date R ecorded Are you denied basic needs s uch as food, clothing, or medical care? No 12/17/2024 In the past 12 months have y ou been in a relationship with a person who hurts, threatens, or tries to control you? No 12/17/2024 Are you denied basic needs s uch as food, clothing, or medical care? No 12/17/2024 In the past 12 months have y ou been in a relationship with a person who hurts, threatens, or tries to control you? 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 Mendez for 05/15 at 1:40 pm. Thank you, Cyn documented in this encounter Plan of Treatment Upcoming Encounters Date Type Department Care Team (Latest Contact Info) Description 06/24/2025 Procedure Pass [facility] Periop [address] [place] [address] 06/24/2025 4:33 PM EDT Hospital Encounter [address] [address] Efe Diamond MD [address] [place] [address] [email or web address] 06/24/2025 4:33 PM EDT - 06/24/2025 6:24 PM EDT Surgery [address] [address] Efe Diamond MD [address] [place] [address] [email or web address] BLUE LIGHT CYSTOSCOPY, TRANSURETHRAL RESECTION BLADDER TUMOR Scheduled Procedures Name Priority Associated Diagnoses Date/Ti vt TRANSURETHRAL RESECTION BLADDER TUMOR Research study patient 06/24/2025 4:33 PM EDT documented as of this encounter Visit Diagnoses Not on filedocumented in this encounter Care Teams Bitumen Plant Operator Relationship Specialty Start Date End Date Mele Christian MD [address] [place] [address] [place] [address] PCP - General Internal Medicine 05/31/23 Mele Christian MD [address] [place] [address] [place] [address] Referring Physician Internal Medicine 06/12/23 documented as of this encounter Additional Source Comments The information contained in this document represents components of the legal health record. It is not the complete legal health record.[facility]
--- OUTSIDE RECORDS SUMMARY | 2025-06-06 12:00 | XMS_ITS | Encounter Summary ---
Author Organization [facility] Address [email or web address] [place] [address] Phone Care Team Providers Care Information Assurance Engineer Name Role Phone Mele Christian MD Primary Care Provider Mele Christian MD Unavailable [phone] Encounter Details Date Type Department Care Team (Late st Contact Info) Description 05/01/2025 Orders Only [facility] [address] [place] [address] Efe Diamond MD [address] [place] [address] [email or web address] Research study patient (Primary Dx) Social History Tobacco Use Types Packs/Day Years [...] high school, GED, job training, learning the Greek language, technical skills, or developing parenting skills)? 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 on file Not on everett e documented as of this encounter Plan of Treatment Upcoming Encounters Date Type Department Care Team (Latest Contact Info) Description 06/24/2025 Procedure Pass [facility] Periop [address] [place] [address] 06/24/2025 4:33 PM EDT Hospital Encounter [facility] Periop [address] [place] [address] Efe Diamond MD [address] [place] [address] [email or web address] 06/24/2025 4:33 PM EDT - 06/24/2025 6:24 PM EDT Surgery [facility] Periop [address] [place] [address] Efe Diamond MD [address] [place] [address] [email or web address] BLUE LIGHT CYSTOSCOPY, TRANSURETHRAL RESECTION BLADDER TUMOR Scheduled Procedures Name Priority Associated Diagnoses Date/Ti md TRANSURETHRAL RESECTION BLADDER TUMOR Research study patient 06/24/2025 4:33 PM EDT documented as of this encounter Visit Diagnoses Diagnosis Research study patient- Primary Research study patient documented in this encounter Care Teams Information Assurance Engineer Relationship Specialty Start Date End Date Mele Christian MD [address] [place] [address] [place] [address] PCP - General Internal Medicine 05/31/23 Mele Christian MD [address] [place] [address] [place] [address] Referring Physician Internal Medicine 06/12/23 documented as of this encounter Additional Source Comments The information contained in this document represents components of the legal health record. It is not the complete legal health record.[facility]
--- OUTSIDE RECORDS SUMMARY | 2025-06-06 12:00 | XMS_ITS | Encounter Summary ---
Author Organization [facility] Address [address] [place] [address] Phone Care Team Providers Care Financial Service Professional Name Role Phone Mele Christian MD Primary Care Provider Mele Christian MD Unavailable [phone] Encounter Details Date Type Department Care Team (Late st Contact Info) Description 06/10/2024 Procedure Pass [facility] Cancer [place], MRI [address] [facility] 4th [place] [address] Social History Tobacco Use Types Packs/Day Years [...] high school, GED, job training, learning the Panamanian language, technical skills, or developing parenting skills)? 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 Not on file Not on everett e documented as of this encounter Plan of Treatment Upcoming Encounters Date Type Department Care Team (Latest Contact Info) Description 06/24/2025 Procedure Pass [facility] Periop [address] [place] [address] 06/24/2025 4:33 PM EDT Hospital Encounter [facility] [address] [address] Efe Diamond MD [address] [place] [address] [email or web address] 06/24/2025 4:33 PM EDT - 06/24/2025 6:24 PM EDT Surgery [facility] Periop [address] [place] [address] Efe Diamond MD [address] [place] [address] [email or web address] BLUE LIGHT CYSTOSCOPY, TRANSURETHRAL RESECTION BLADDER TUMOR Scheduled Procedures Name Priority Associated Diagnoses Date/Ti ri TRANSURETHRAL RESECTION BLADDER TUMOR Research study patient 06/24/2025 4:33 PM EDT documented as of this encounter Visit Diagnoses Not on filedocumented in this encounter Care Teams Financial Service Professional Relationship Specialty Start Date End Date Mele Christian MD [address] [place] [address] [place] [address] PCP - General Internal Medicine 05/31/23 Mele Christian MD [address] [place] [address] [place] [address] Referring Physician Internal Medicine 06/12/23 documented as of this encounter Additional Source Comments The information contained in this document represents components of the legal health record. It is not the complete legal health record.[facility]
--- OUTSIDE RECORDS SUMMARY | 2025-06-06 12:00 | XMS_ITS | Encounter Summary ---
Author Organization [facility] Address [address] [facility] [address] [place] [address] Phone Care Team Providers Care Clutch Assembler Name Role Phone Mele Christian MD Primary Care Provider Mele Christian MD Unavailable [phone] Encounter Details Date Type Department Care Team (Late st Contact Info) Description 03/19/2025 Telephone [facility] Urology [address] [facility] [place] [address] [place], [place] [address] [place] [address] [email or web address] Social History Tobacco Use Types Packs/Day Years [...] high school, GED, job training, learning the Nicaraguan language, technical skills, or developing parenting skills)? 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 Mendez has been scheduled and confirmed Advanced trial treatments x 6. I also mailed him a copy of his treatment schedule. Thank you, Cyn documented in this encounter Plan of Treatment Upcoming Encounters Date Type Department Care Team (Latest Contact Info) Description 06/24/2025 Procedure Pass [facility] [address] [address] 06/24/2025 4:33 PM EDT Hospital Encounter [address] [address] Efe Diamond MD [address] [place] [address] [email or web address] 06/24/2025 4:33 PM EDT - 06/24/2025 6:24 PM EDT Surgery [address] [address] Efe Diamond MD [address] [place] [address] [email or web address] BLUE LIGHT CYSTOSCOPY, TRANSURETHRAL RESECTION BLADDER TUMOR Scheduled Procedures Name Priority Associated Diagnoses Date/Ti nd TRANSURETHRAL RESECTION BLADDER TUMOR Research study patient 06/24/2025 4:33 PM EDT documented as of this encounter Visit Diagnoses Not on filedocumented in this encounter Care Teams Clutch Assembler Relationship Specialty Start Date End Date Mele Christian MD [address] [place] [address] [place] [address] PCP - General Internal Medicine 05/31/23 Mele Christian MD [address] [place] [address] [place] [address] Referring Physician Internal Medicine 06/12/23 documented as of this encounter Additional Source Comments The information contained in this document represents components of the legal health record. It is not the complete legal health record.[facility]
--- OUTSIDE RECORDS SUMMARY | 2025-06-06 12:00 | XMS_ITS | Clinical Summary ---
Author Organization [facility] Address [address] [facility] [address] [place] [address] Phone Care Team Providers Care [employer] Department Head Name Role Phone Mele Christian MD Primary Care Provider Mele Christian MD Unavailable [phone] Allergies Active Allergy Reactions Criticality Noted Date Comments Rosuvastatin Myalgia 11/12/2024 Medications TRULICITY 4.5 mg/0.5 mL subcutaneous injection 04/22/20 23 Active gabapentin (NEURONTIN) 300 MG capsule Take 300 mg by mouth 3 (three) times a day. 05/23/20 23 Active LANTUS SOLOSTAR U-100 INSULIN 100 unit/mL (3 mL) InPn injection pen INJECT 52 UNITS DAILY 03/20/20 23 Active metFORMIN (GLUCOPHAGE) 1000 MG tablet 04/01/20 23 Active phenazopyridine (PYRIDIUM) 200 MG tablet 08/16/20 22 Active tamsulosin (FLOMAX) 0.4 mg Cap Take 1 capsule by mouth every morning. 05/23/20 23 Active lisinopril-hydro CHLOROthiazide (PRINZIDE,ZESTOR ETIC) 10-12.5 mg per tablet 04/12/20 23 Active pravastatin (PRAVACHOL) 80 MG tablet 04/12/20 23 Active OZEMPIC 1 mg/dose (4 mg/3 mL) subcutaneous injection pen Active acetaminophen (TYLENOL) 325 mg tablet Take 2 tablets (650 mg total) by mouth every 6 (six) hours as needed for pain (specific location in comments). 12/18/19 25 Active phenazopyridine (PYRIDIUM) 200 MG tablet Take 1 tablet (200 mg total) by mouth 3 (three) times a day as needed for pain (specific location in comments). 10 tablet 12/18/19 25 Active tamsulosin (FLOMAX) 0.4 mg Cap Take 1 capsule (0.4 mg total) by mouth daily. 30 capsule 3 12/18/19 25 Active oxyBUTYnin (DITROPAN-XL) 10 MG 24 hr tablet Take 1 tablet (10 mg total) by mouth daily. 30 tablet 5 12/21/19 25 Active ciprofloxacin HCl (CIPRO) 500 MG tablet Take 1 tablet (500 mg total) by mouth 2 (two) times a day. 20 tablet 12/21/19 25 Active aspirin 81 mg Cap Take 81 mg by mouth. 01/18/20 23 Active BD INSULIN PEN NEEDLE UF SHORT 31 gauge x 5/16 Ndle USE SUBCUTANEOUSLY DAILY DIRECTED. 12/20/19 25 Active ofloxacin (OCUFLOX) 0.3 % ophthalmic solution 03/25/20 25 Active Hospital, Clinic, or Other Facility Administered Medication Ordered Dose Route Frequency Start Date End Date Status ID-VINCENT-002 ([id number]) 40 Units in sodium chloride 0.9% 51 mL syringe 40 Units Juan Antonio Once 05/01/2025 07/30/2025 Active ID-VINCENT-002 ([id number]) 40 Units in sodium chloride 0.9% 51 mL syringe 40 Units Juan Antonio Once 05/15/2025 05/15/2025 Ended Active Problems No known active problems Encounters Date Type Department Care Team Description 05/27/2025 Orders Only [facility] Urology [address] [place] [address] Efe Patel MD Research study patient (Primary Dx) 05/27/2025 Documentation [facility] Urology [address] [place] [address] Efe Patel MD 05/15/2025 1:40 PM EDT Office Visit [facility] Urology [address] [place] [address] Unknown, Unknown, Aline Ron PATaviaC Research study patient (Primary Dx); Carcinoma of bladder 05/15/2025 1:01 PM EDT - 05/15/2025 11:59 PM EDT Hospital Encounter [facility] [place] [address] Unknown, Unknown, Discharge Disposition: Home or Self Care 05/08/2025 8:49 AM EDT - 05/08/2025 11:59 PM EDT Hospital Encounter [facility] [address] [place] [address] Efe Patel MD Discharge Disposition: Home or Self Care 05/07/2025 Telephone [facility] Urology [address] [place] [address] Cyn Vo [place] 05/07/2025 Orders Only [facility] Urology [address] [address] Ngoc Lunsford PA-C Suspected UTI (Primary Dx) 05/07/2025 Telephone [facility] Urology [address] [place] [address] Efe Patel MD painful urnation 05/02/[address] [address] Ngoc Lunsford PA-C 05/01/2025 Orders Only [address] [address] Efe Patel MD Research study patient (Primary Dx) 05/01/2025 Telephone [facility] [address] [address] Cyn Vo [place] 04/24/2025 1:20 PM EDT Office Visit [facility] [address] [address] Unknown, Ryan, Carlin Olsen PA-C Carcinoma of bladder (Primary Dx) 04/24/2025 1:01 PM EDT - 04/24/2025 11:59 PM EDT Hospital Encounter [facility] Phlebotomy Main [address] [address] Unknown, Unknown, MD Discharge Disposition: Home or Self Care 04/23/2025 Orders Only [facility] Urology [address] [place] [address] Efe Patel MD Research study patient (Primary Dx) 04/17/2025 1:20 PM EDT Office Visit [facility] [address] [address] Unknown, Unknown, Aline Ron PA-C Carcinoma of bladder (Primary Dx) 04/17/2025 1:12 PM EDT - 04/17/2025 11:59 PM EDT Hospital Encounter [facility] Phlebotomy Main [address] [address] Unknown, Unknown, Discharge Disposition: Home or Self Care 04/17/2025 Orders Only [address] [address] Efe Patel MD Research study patient (Primary Dx) 04/16/2025 Orders Only [facility] [address] [address] Efe Patel MD Research study patient (Primary Dx) 04/15/2025 Orders Only [address] [address] Efe Patel MD Research study patient (Primary Dx) 04/10/2025 1:00 PM EDT Office Visit [facility] [address] [address] Unknown, Unknown, Aline Ron PA-C Research study patient (Primary Dx); Carcinoma of bladder 04/10/2025 12:41 PM EDT - 04/10/2025 11:59 PM EDT Hospital Encounter [facility] Phlebotomy Main [address] [address] Unknown, Unknown, MD Discharge Disposition: Home or Self Care 04/03/2025 1:20 PM EDT Office Visit [facility] [address] [address] Unknown, Unknown, Aline Ron PA-C Carcinoma of bladder (Primary Dx) 04/03/2025 12:22 PM EDT - 04/03/2025 11:59 PM EDT Hospital Encounter [facility] Phlebotomy Main [place] [address] [place] [address] Unknown, Unknown, MD Discharge Disposition: Home or Self Care 04/03/2025 Orders Only [facility] [address] [place] [address] Efe Patel MD Research study patient (Primary Dx) 04/02/2025 Orders Only [facility] [address] [facility] 4th [place] [address] Efe Patel MD Research study patient (Primary Dx) 04/02/2025 Orders Only [facility] Urology [address] [place] [address] Porsha Lion PA-C 03/27/2025 1:40 PM EDT Office Visit [facility] [address] [id number] Unknown, Ryan, Aline Ron PA-C Carcinoma of bladder (Primary Dx) 03/27/2025 Orders Only [facility] Urology [address] [place] [address] Efe Patel MD Research study patient (Primary Dx) 03/19/2025 Telephone [facility] Urology [address] [place] [address] Cyn Vo [place] 03/11/2025 11:40 AM EDT Office Visit [facility] Urology [address] [place] [address] Efe Patel MD Carcinoma of bladder (Primary Dx) from Last 3 Months Social History Tobacco Use Types Packs/Day Years Used Date Smoking Tobacco: Former Cigarettes 1 40 1 975 - 2015 Passive Smoke Exposure: Past Smokeless Tobacco: Former Tobacco Cessation:Counseling Given: Not Answered Child or Family Care Answer Date Record ed Do you have problems with on e of the following making it difficult for you to work, study, or receive health care? No 06/12/2023 Education Answer Date Recorded Are you interested in help w ith more adult education (for example, completing high school, GED, job training, learning the Algerian language, technical skills, or developing parenting skills)? 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 on file Not on everett e Last Filed Vital Signs Vital Sign Reading Time Taken Comments Blood Pressure 121/62 05/15/2025 1:10 PM EDT Pulse 112 05/15/2025 1:10 PM EDT Temperature 37 C (98.6 F) 05/15/2025 1:17 PM EDT Respiratory Rate 18 05/15/2025 1:10 PM EDT Oxygen Saturation 99% 05/15/2025 1:10 PM EDT Inhaled Oxygen Concentration 100% 12/17/2024 1 2:39 PM EDT Weight 96.2 kg (212 lb) 05/15/2025 1:10 PM EDT Height 177.8 cm (5' 10 ) 05/15/2025 1:10 PM EDT Body Mass Index 30.42 05/15/2025 1:10 PM EDT Plan of Treatment Upcoming Encounters Date Type Department Care Team (Latest Contact Info) Description 06/24/2025 Procedure Pass [facility] Periop [address] [place] [address] 06/24/2025 4:33 PM EDT Hospital Encounter [facility] [address] [address] Efe Patel MD [address] [place] [address] [email or web address] 06/24/2025 4:33 PM EDT - 06/24/2025 6:24 PM EDT Surgery [facility] [address] [address] Efe Patel MD [address] [place] [address] [email or web address] BLUE LIGHT CYSTOSCOPY, TRANSURETHRAL RESECTION BLADDER TUMOR Scheduled Procedures Name Priority Associated Diagnoses Date/Ti nh TRANSURETHRAL RESECTION BLADDER TUMOR Research study patient 06/24/2025 4:33 PM EDT Health Maintenance Due Date Last Done Comments Adult Td,Tdap Booster 1965 LIPID PANEL 1965 HEPATITIS C SCREENING 1981 HIV ONE-TIME SCREENING (18-6 5 YEARS) 1981 PNEUMOCOCCAL VACCINES (50+ years) (1 of 2 - PCV) 1982 ZOSTER VACCINES (1 of 2) 1982 COLOGUARD 2008 COLONOSCOPY 2008 COLORECTAL CANCER SCREENING 2008 FIT TEST 2008 FOBT 2008 SIGMOIDOSCOPY 2008 VIRTUAL COLONOSCOPY 2008 LUNG CANCER SCREENING (LDCT Only) 2013 INFLUENZA VACCINE (#1) 2025 COVID-19 VACCINE (3 - 2024-2 6 season) 2025 05/25/2021, 05/03/2021 CREATININE LEVEL 06/10/2025 06/10/2024, 01/15/2024 POTASSIUM LEVEL 06/10/2025 06/10/2024, 01/15/2024 DEPRESSION SCREENING 11/11/2025 11/11/2024 SCREENING FOR DIABETES 12/18/2027 12/17/2024 RSV VACCINE (1 - 1-dose 75+ series) 2038 HEPATITIS A VACCINES Aged Out No long er eligible based on patient's age to complete this topic HIB VACCINES Aged Out No longer eligi ble based on patient's age to complete this topic MENINGOCOCCAL VACCINES (ACWY) Aged Out No longer eligible based on patient's age to complete this topic MENINGOCOCCAL VACCINES (B) Aged Out N o longer eligible based on patient's age to complete this topic Medical Devices Not on file Procedures Procedure Name Priority Date/Time Associated Diagnosis Comments POCT URINE DIPSTICK Routine 05/15/2025 1 2:44 PM EDT URINE SEDIMENT Routine 05/08/2025 8:59 AM EDT URINALYSIS Routine 05/08/2025 8:59 AM EDT Suspected UTI URINE CULTURE Routine 05/08/2025 8:59 AM EDT Suspected UTI POCT URINE DIPSTICK Routine 04/24/2025 1 2:48 PM EDT POCT URINE DIPSTICK Routine 04/17/2025 1 2:08 PM EDT POCT URINE DIPSTICK Routine 04/10/2025 1 2:32 PM EDT POCT URINE DIPSTICK Routine 04/03/2025 1 2:59 PM EDT POCT URINE DIPSTICK Routine 03/27/2025 2 :15 PM EDT NON-PROCUREMENT PROFESSIONAL CYTOLOGY, URINE/URINARY TRACT Routine 03/11/2025 12:38 PM EDT Carcinoma of bladder NON-PROCUREMENT PROFESSIONAL CYTOLOGY, NON CSF, NON URINE Routine 03/11/2025 12:00 AM EDT COMPREHENSIVE METABOLIC PANEL Routine 06/10/2024 7:26 AM EDT Malignant neoplasm of lateral wall of urinary bladder from Last 3 Months or Most Recently Relevant to Health Maintenance Results * (ABNORMAL) POCT Urine Dipstick (05/15/2025 12:44 PM EDT) Only the most recent of6 resultswithin the time period is included. Leukocytes Negative Negative [facility] Nitrites Negative Negative [facility] protein Negative Negative [facility] ph 6.0 4.5 - 8.0 [facility] Blood Negative Negative [facility] Specific [place] 1.025 1.003 - 1.035 [facility] Ketone Negative Negative [facility] Glucose 2+(A) Negative [facility] 05/15/2025 12:4 4 PM EDT 05/15/2025 12:46 PM EDT us Unknown Unknown MD POINT OF CARE TEST ORDERABLES Final Result [facility] OF UROLOGICAL SURGERY [address] [place] [address] * Urine Culture (05/08/2025 8:59 AM EDT) Special Requests None 05/08/2025 8:59 AM EDT [facility] Urine Culture <10,000 colony forming units per mL 05/09/2025 9:53 AM EDT [facility] Urine (Urine) 05/08/2025 8:5 9 AM EDT 05/08/2025 9:06 AM EDT Comment:VOIDED us Ngoc Hernandez PA-C MICROBIOLOGY - GENER AL ORDERABLES Final Result Performing Organization Address [facility] Co de Phone Number [address] [address] * (ABNORMAL) Urine sediment (05/08/2025 8:59 AM EDT) WBC 5-10(A) NONE SEEN /hpf [facility] RBC 3-5(A) NONE SEEN /hpf [facility] URINE EPITHELIAL 0-4(A) NONE SEEN [facility] MUCUS Trace(A) NONE SEEN /hpf [facility] BACTERIA Trace(A) NONE SEEN /hpf [facility] 05/08/2025 8:59 AM EDT 05/08/2025 9:06 AM EDT us Ngoc Hernandez PA-C URINE ORDERABLES Fin al Result Performing Organization Address City/[facility]/ZIP Co de Phone Number [address] [address] * (ABNORMAL) Urinalysis (05/08/2025 8:59 AM EDT) COLOR Yellow Yellow [facility] CLARITY Clear [facility] GLUCOSE Trace(A) Negative [facility] BILI Negative Negative [facility] KETONES Negative Negative [facility] SPECIFIC GRAVITY 1.025 1.005 - 1.030 [facility] BLOOD 3+(A) Negative [facility] PH 6.0 5.0 - 8.0 [facility] Protein-UA Negative Negative [facility] NITRITE Negative Negative [facility] Leukocyte esterase, ur Negative Negative [facility] Urine (Urine) 05/08/2025 8:5 9 AM EDT 05/08/2025 9:06 AM EDT us Ngoc Hernandez PA-C URINE ORDERABLES Fin al Result Performing Organization Address City/[facility]/ZIP Co de Phone Number [facility] [address] [place] [address] * Urine cytology order (03/11/2025 12:38 PM EDT) Cytology Order Status Specimen received in Cytology Lab for processing. [facility] Urine 03/11/2025 12:3 8 PM EDT 03/11/2025 2:19 PM EDT Efe Patel MD URINE ORDERABLES Final Resu lt Performing Organization Address City/[facility]/ZIP Co de Phone Number [facility] [address] [place] [address] * Non-Payable Manager Cytology (03/11/2025 12:00 AM EDT) 03/11/2025 03/12/2025 Narrative [facility] - 03/13/2025 9:07 AM EDT CASE: [id number] PATIENT: KAMALJIT MENDEZ Date: 1965 Sex: M [facility] Department of Pathology [address] [place] [address] CLIA License No.: [id number] Disability Attorney: Keyshawn Bashir MD, PhD Physician: EFE PATEL MD Procedure Date: 03/11/2025 Rejector: ROLLY Reyna (ASCP) Pathologist: Keyshawn Bashir M.D., Ph.D. URINE, CYSTO BLADDER FINAL CYTOLOGIC INTERPRETATION INTERPRETATION: POSITIVE FOR MALIGNANT CELLS. DIAGNOSIS: Consistent with urothelial cell carcinoma. CLINICAL DATA History: malignant neoplasm of bladder, unspecified. GROSS DESCRIPTION 50cc yellow fluid. MATERIALS Total slides: 1 , 1 Cytospin By his/her signature below, the senior physician certifies that he/she personally conducted a microscopic examination of the described specimen(s) and rendered or confirmed the diagnosis (es) related thereto. Final Diagnosis by Keyshawn Bashir M.D., Ph.D., Electronically signed on February at 09:07:02AM us Efe Patel MD CYTOLOGY ORDERABLES Final R esult [facility] [address] [place] [address] * (ABNORMAL) Comprehensive metabolic panel (06/10/2024 7:26 AM EDT) SODIUM 139 136 - 145 mmol/L [facility]# [id number] POTASSIUM 4.7 3.4 - 5.1 mmol/L [facility]# [id number] CHLORIDE 101 98 - 107 mmol/L [facility]# [id number] CO2 27 22 - 31 mmol/L [facility]# [id number] BUN 16 6 - 23 mg/dL [facility]# [id number] CREATININE 1.18 0.50 - 1.20 mg/dL [facility]# [id number] GLUCOSE 156(H) 70 - 100 mg/dL [facility]# [id number] ALBUMIN 4.5 3.5 - 5.2 g/dL [facility]# [id number] TOTAL PROTEIN 7.2 6.4 - 8.3 g/dL [facility]# [id number] CALCIUM 9.9 8.8 - 10.7 mg/dL [facility]# [id number] ALKALINE PHOSPHATASE 67 40 - 129 U/L [facility]# [id number] TOTAL BILIRUBIN 0.3 0.2 - 1.2 mg/dL [facility]# [id number] AST 47(H) <41 U/L [facility]# [id number] ALT 69(H) <42 U/L [facility]# [id number] GLOBULIN 2.7 2.3 - 4.2 g/dL [facility]# [id number] EGFR 70 >59 mL/min/1.7 3m2 [facility]# [id number] Comment:Estimated glomerular filtration rate calculated using the CKD-EPI refit equation. ANION GAP 11 7 - 17 mmol/L [facility]# [id number] Blood 06/10/2024 7:26 AM EDT 06/10/2024 7:29 AM EDT Gerson Falk MD, PhD LAB BLOOD ORDERA BLES Final Result [facility]# [id number] [address] [place] [address] from Last 3 Months or Most Recently Relevant to Health Maintenance Insurance O O O O HMO HMO [employer] Care Teams College Or University Department Head Relationship Specialty Start Date End Date Mele Christian MD [address] [place] [address] [place] [address] PCP - General Internal Medicine 05/31/23 Mele Christian MD [address] [place] [address] [place] [address] Referring Physician Internal Medicine 06/12/23 Additional Source Comments The information contained in this document represents components of the legal health record. It is not the complete legal health record.[facility]
--- OUTSIDE RECORDS SUMMARY | 2025-06-06 12:00 | XMS_ITS | Encounter Summary ---
Author Organization [facility] Address [address] [place] [address] Phone Care Team Providers Care Regulated Program Manager Name Role Phone Mele Christian MD Primary Care Provider Mele Christian MD Unavailable Encounter Details Date Type Department Care Team (Late st Contact Info) Description 12/17/[address] [facility] [address] [place] [address] Social History Tobacco Use Types Packs/Day Years [...] high school, GED, job training, learning the Brazilian language, technical skills, or developing parenting skills)? 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 on file Not on everett e documented as of this encounter Plan of Treatment Upcoming Encounters Date Type Department Care Team (Latest Contact Info) Description 06/24/2025 Procedure Pass [facility] Periop [address] [place] [address] 06/24/2025 4:33 PM EDT Hospital Encounter [facility] Periop [address] [place] [address] Efe Diamond MD [address] [place] [address] [email or web address] 06/24/2025 4:33 PM EDT - 06/24/2025 6:24 PM EDT Surgery [facility] Periop [address] [place] [address] Efe Diamond MD [address] [place] [address] [email or web address] BLUE LIGHT CYSTOSCOPY, TRANSURETHRAL RESECTION BLADDER TUMOR Scheduled Procedures Name Priority Associated Diagnoses Date/Ti nh TRANSURETHRAL RESECTION BLADDER TUMOR Research study patient 06/24/2025 4:33 PM EDT documented as of this encounter Visit Diagnoses Not on filedocumented in this encounter Care Teams Regulated Program Manager Relationship Specialty Start Date End Date Mele Christian MD [address] [place] [address] [place] [address] PCP - General Internal Medicine 05/31/23 Mele Christian MD [address] [place] [address] [place] [address] Referring Physician Internal Medicine 06/12/23 documented as of this encounter Additional Source Comments The information contained in this document represents components of the legal health record. It is not the complete legal health record.[facility]
--- OUTSIDE RECORDS SUMMARY | 2025-06-06 12:00 | XMS_ITS | Encounter Summary ---
Author Organization [facility] Address [address] [place] [phone] Phone Care Team Providers Care Investment Accountant Name Role Phone Mele Christian MD Primary Care Provider Mele Christian MD Unavailable [phone] Encounter Details Date Type Department Care Team (Late st Contact Info) Description 06/12/2023 Ancillary Orders [facility], [facility] [place] [address] [place] [address] Gerson Dillon MD, PhD [address] [place] [address] [email or web address] Social History Tobacco Use Types Packs/Day Years [...] high school, GED, job training, learning the Mongolian language, technical skills, or developing parenting skills)? 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 on file Not on everett e documented as of this encounter Plan of Treatment Upcoming Encounters Date Type Department Care Team (Latest Contact Info) Description 06/24/2025 Procedure Pass [facility] Periop [address] [place] [address] 06/24/2025 4:33 PM EDT Hospital Encounter [facility] Periop [address] [place] [address] Efe Diamond MD [address] [place] [address] [email or web address] 06/24/2025 4:33 PM EDT - 06/24/2025 6:24 PM EDT Surgery [facility] [address] [place] [address] Efe Diamond MD [address] [place] [address] [email or web address] BLUE LIGHT CYSTOSCOPY, TRANSURETHRAL RESECTION BLADDER TUMOR Scheduled Procedures Name Priority Associated Diagnoses Date/Ti nj TRANSURETHRAL RESECTION BLADDER TUMOR Research study patient 06/24/2025 4:33 PM EDT documented as of this encounter Visit Diagnoses Not on filedocumented in this encounter Care Teams Investment Accountant Relationship Specialty Start Date End Date Mele Christian MD [address] [place] [address] Dr THORNE [address] [place] [id number] PCP - General Internal Medicine 05/31/23 Mele Christian MD [address] [place] [address] Dr THORNE [address] [place] [id number] Referring Physician Internal Medicine 06/12/23 documented as of this encounter Additional Source Comments The information contained in this document represents components of the legal health record. It is not the complete legal health record.[facility]
--- OUTSIDE RECORDS SUMMARY | 2025-06-06 12:00 | XMS_ITS | Encounter Summary ---
Author Organization [facility] Address [address] [place] [address] Phone Care Team Providers Care Computator Name Role Phone Mele Christian MD Primary Care Provider Mele Christian MD Unavailable [phone] Encounter Details Date Type Department Care Team (Late st Contact Info) Description 05/01/2025 Telephone [facility] Urology [address] [facility] [place] [address] Cyn VoHAGAMAN, [place] [address] [place] [address] [email or web address] Social History Tobacco Use Types Packs/Day Years [...] high school, GED, job training, learning the Egyptian language, technical skills, or developing parenting skills)? 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 Mendez to reschedule his Advanced Trial treatment from 05/01 to 05/08, due to his inability to make his appointment. Mr. Mendez confirmed his new treatment date and time. Cyn Mendoza documented in this encounter Plan of Treatment Upcoming Encounters Date Type Department Care Team (Latest Contact Info) Description 06/24/2025 Procedure Pass [facility] Periop [address] [place] [address] 06/24/2025 4:33 PM EDT Hospital Encounter [facility] [address] [address] Efe Diamond MD [address] [place] [phone] [email or web address] 06/24/2025 4:33 PM EDT - 06/24/2025 6:24 PM EDT Surgery [facility] [address] [address] Efe Diamond MD [address] [place] [address] [email or web address] BLUE LIGHT CYSTOSCOPY, TRANSURETHRAL RESECTION BLADDER TUMOR Scheduled Procedures Name Priority Associated Diagnoses Date/Ti nh TRANSURETHRAL RESECTION BLADDER TUMOR Research study patient 06/24/2025 4:33 PM EDT documented as of this encounter Visit Diagnoses Not on filedocumented in this encounter Care Teams Computator Relationship Specialty Start Date End Date Mele Christian MD [address] [place] [address] [place] [address] PCP - General Internal Medicine 05/31/23 Mele Christian MD [address] [place] [address] [place] [phone] Referring Physician Internal Medicine 06/12/23 documented as of this encounter Additional Source Comments The information contained in this document represents components of the legal health record. It is not the complete legal health record.[facility]
[2025-06-06 12:16] LABS: Alanine Aminotransferase 56 U/L (0-40); Albumin Level 4.5 g/dL (3.5-5.0); Alkaline Phosphatase 66 U/L (39-117); Aspartate Amino Transferase 42 U/L (5-37); Cholesterol 112 mg/dL (<200); HDL Cholesterol 29 mg/dL (>40); Total Protein 7.0 g/dL (6.5-8.0); Triglycerides 156 mg/dL (<150)
[2025-06-06 12:49] LABS: Reflex LDLD? No
== END 2025-06-06 07:46 | disposition home or self-care (01) ==
LOC: HO.LNP 07:45
PROVIDERS: Visit Provider Internal Medicine
DX: E11.9 Type 2 diabetes mellitus without complications (principal); E78.00 Pure hypercholesterolemia, unspecified
CPT/HCPCS: 80061; 80076; 82947; 83036